=== PATIENT | female | born 1970 | race Caucasian/White ===

== ENCOUNTER 2020-02-11 16:16 | Emergency (ER) | payer SELFPAY ==
--- NOTE | 2020-02-11 16:26 | EDM.PDOC ---
ED HPI GENERAL MEDICAL PROBLEM - General Chief Complaint: General Stated Complaint: SOB AND THROAT FEELS CLOSED Time Seen by Provider: 02/11/20 16:25 - History of Present Illness INITIAL COMMENTS - FREE TEXT/NARRATIVE: 49-year-old female presents the emergency room with throat tightness and a sensation of shortness of breath. The patient was at work today and had this episode come on fairly rapidly. The patient has had multiple double episodes like this and she cannot correlate it with any sort of triggers activity or rest this can occur. Yesterday she had an episode that occurred when she was at home and usually this occurs when she is at work. She is had a few episodes in her sleep where she has had reflux-like symptoms. The patient is quite anxious at this time. She is hypertensive and her pulse is mildly elevated. Patient is diaphoretic. She also describes a chest tightness with this she describes this more as a pressure rather than the pain when it involves her chest. The throat tightness is at its worst she has a radiating pain into her left ear not the right ear. Patient has an aspirin allergy. Throat Pain Score (Numeric/FACES): 8 - Related Data Allergies Allergy/AdvReac Type Severity Reaction Status Date / Time Penicillins Allergy Mild Hives Verified 02/11/20 17:06 aspirin AdvReac Mild Vomiting Verified 02/11/20 17:06 Home Meds: Home Meds hydrOXYzine HCL [hydrOXYzine] 25 mg PO Q6H PRN 02/11/20 [History] ED ROS ENT - Review of Systems Review Of Systems: See Below Constitutional: Reports: No Symptoms HEENT: Reports: No Symptoms Respiratory: Reports: Shortness of Breath Cardiovascular: Reports: Chest Pain, Blood Pressure Problem. Denies: Dyspnea on Exertion, Edema, Syncope Endocrine: Reports: No Symptoms GI/Abdominal: Reports: No Symptoms : Reports: No Symptoms Musculoskeletal: Reports: No Symptoms Skin: Reports: No Symptoms Neurological: Reports: No Symptoms Psychiatric: Reports: Anxiety. Denies: No Symptoms Hematologic/Lymphatic: Reports: No Symptoms. Denies: Anemia Immunologic: Reports: No Symptoms. Denies: Anaphylaxis ED EXAM, ENT - Physical Exam Exam: See Below Exam Limited By: No Limitations General Appearance: Alert, Anxious Eye Exam: Bilateral Eye: Normal Inspection Ears: Normal External Exam, Normal Canal, Hearing Grossly Normal, Normal TMs Nose: Normal Inspection, Normal Mucousa, No Blood Mouth/Throat: Normal Inspection, Normal Gums, Normal Lips, Normal Oropharynx. No: Normal Teeth (He has poor dentition) Head: Atraumatic, Normocephalic Neck: Normal Inspection, Supple, Non-Tender, Full Range of Motion. No: Lymphadenopathy (L), Lymphadenopathy (R), Tender Lateral, Tender Midline Respiratory/Chest: No Respiratory Distress, Lungs Clear, Normal Breath Sounds Cardiovascular: Regular Rate, Rhythm, No Edema, No Murmur, Tachycardia (In the very low 100s) GI/Abdominal: Normal Bowel Sounds, Soft, Non-Tender, Other (Significant abdominal obesity with palpation she has no epigastric discomfort however no upper abdominal discomfort no rigidity rebound or guarding) Back: Normal Inspection. No: CVA Tenderness (L), CVA Tenderness (R) Extremities: Normal Inspection, No Pedal Edema Neurological: Alert, Oriented Psychiatric: Anxious Skin: Warm, Intact, Normal Color, Other (Joseph diaphoretic) EKG INTERPRETATION EKG Date: 02/11/20 Rhythm: NSR [place]: Normal P-Wave: Present QRS: Normal ST-T: Elevated (Elevated in lead III not quite diagnostic at the J-point in aVF or in lead II she has some reciprocal depression in leads I and aVL and to a lesser degree in V2.) Comparison: NA - No Prior EKG EKG Interpretation Comments: EKG suspicious for inferior [place] however no diagnostic changes in 2 contiguous leads. Course - Vital Signs Last Recorded V/S: Last Vital Signs Temp 36.2 C 02/11/20 18:04 Pulse 95 02/11/20 18:04 Resp 22 H 02/11/20 18:04 BP 166/104 H 02/11/20 18:04 Pulse Ox 92 L 02/11/20 18:04 - Orders/Labs/Meds Orders: Active Orders 24 hr Category Date Time Status EKG Documentation Completion [RC] STAT Care 02/11/20 16:35 Active Heparin Sodium/D5W [Heparin 25,000 Units in D5W 500 ML] Med 02/11/20 17:36 Active 25,000 units in 500 ml IV STAT Nitroglycerin/D5W [Nitroglycerin 25 MG/D5W 250 ML] Med 02/11/20 18:15 Active 25 mg in 250 ml IV TITRATE Medication Orders Heparin Sodium/Dextrose (Heparin 25,000 Units In D5w 500 Ml) 25,000 units in 500 mls @ 20 mls/hr IV STAT STA; Protocol Stop: 02/12/20 18:35 Last Admin: 02/11/20 17:49 Dose: 1,000 units/hr, 20 mls/hr Documented by: LISA Cosigned by: KARI Nitroglycerin/Dextrose (Nitroglycerin 25 Mg/D5w 250 Ml) 25 mg in 250 mls @ 3 mls/hr IV TITRATE SAMUEL; Protocol Last Admin: 02/11/20 18:08 Dose: 5 mcg/min, 3 mls/hr Documented by: LISA Labs: Laboratory Tests 02/11/20 02/11/20 Range/Units 16:50 16:50 PT 10.3 (9.7-12.0) SECONDS INR 0.94 APTT 28 (22-31) SECONDS Sodium 139 (136-145) mEq/L Potassium 3.7 (3.5-5.1) mEq/L Chloride 103 (98-107) mEq/L Carbon Dioxide 25 (21-32) mEq/L Anion Gap 14.7 (5-15) BUN 15 (7-18) mg/dL Creatinine 0.9 (0.55-1.02) mg/dL Est Cr Clr Drug Dosing 71.91 mL/min Estimated GFR (MDRD) > 60 (>60) mL/min BUN/Creatinine Ratio 16.7 (14-18) Glucose 116 H (74-106) mg/dL Calcium 9.5 (8.5-10.1) mg/dL Total Bilirubin 0.4 (0.2-1.0) mg/dL AST 14 L (15-37) U/L ALT 23 (14-59) U/L Alkaline Phosphatase 119 H (46-116) U/L Troponin I < 0.017 (0.00-0.056) ng/mL Total Protein 8.6 H (6.4-8.2) g/dl Albumin 3.9 (3.4-5.0) g/dl Globulin 4.7 gm/dL Albumin/Globulin Ratio 0.8 L (1-2) Meds: Medications Generic Name Dose Route Start Last Admin Trade Name Freq PRN Reason Stop Dose Admin Heparin Sodium/Dextrose 25,000 units in 500 mls @ 20 mls/hr 02/11/20 17:36 02/11/20 17:49 Heparin 25,000 Units In D5w 500 Ml IV 02/12/20 18:35 1,000 units/hr STAT STA 20 mls/hr Administration Protocol 1,000 UNITS/HR Nitroglycerin/Dextrose 25 mg in 250 mls @ 3 mls/hr 02/11/20 18:15 02/11/20 18:08 Nitroglycerin 25 Mg/D5w 250 Ml IV 5 mcg/min TITRATE SAUMEL 3 mls/hr Administration Protocol 5 MCG/MIN Discontinued Medications Generic Name Dose Route Start Last Admin Trade Name Chase PRN Reason Stop Dose Admin Aspirin 324 mg 02/11/20 17:45 02/11/20 17:48 Aspirin PO 02/11/20 17:46 324 mg ONETIME ONE Administration Aspirin Confirm 02/11/20 17:46 02/11/20 17:54 Aspirin Administered 02/11/20 17:47 324 mg Dose Administration 324 mg .ROUTE .STK-MED ONE Clopidogrel Bisulfate 600 mg 02/11/20 17:36 02/11/20 17:46 Plavix PO 02/11/20 17:37 600 mg ONETIME ONE Administration Diphenhydramine HCl 25 mg 02/11/20 16:38 02/11/20 17:00 Benadryl IVPUSH 02/11/20 16:39 25 mg ONETIME ONE Administration Famotidine 40 mg 02/11/20 21:00 Pepcid IVPUSH BEDTIME SAMUEL Famotidine 40 mg 02/11/20 16:55 02/11/20 17:01 Pepcid IVPUSH 02/11/20 16:56 40 mg STAT STA Administration Heparin Sodium (Porcine) 4,000 units 02/11/20 17:36 02/11/20 17:45 Heparin Sodium IVPUSH 02/11/20 17:37 4,000 units .BOLUS ONE Administration Nitroglycerin/Dextrose 25 mg in 250 mls @ 02/11/20 18:15 Nitroglycerin 25 Mg/D5w 250 Ml IV TITRATE SAMUEL Protocol 5 ML/KG/MIN Lorazepam 1 mg 02/11/20 16:38 02/11/20 17:01 Ativan IVPUSH 02/11/20 16:39 1 mg ONETIME ONE Administration Nitroglycerin 0.4 mg 02/11/20 17:23 02/11/20 17:52 Nitrostat SL 0.4 mg Q5M PRN Administration Chest Pain Ondansetron HCl 4 mg 02/11/20 17:44 02/11/20 17:56 Zofran IVPUSH 02/11/20 17:45 4 mg ONETIME ONE Administration Tenecteplase Confirm 02/11/20 17:55 02/11/20 17:58 Tnkase Administered 02/11/20 17:56 50 mg Dose Administration 50 mg .ROUTE .STK-MED ONE Tenecteplase 50 mg 02/11/20 18:11 02/11/20 17:58 Tnkase IV 02/11/20 18:12 50 mg STAT STA Administration Protocol - Re-Assessments/Exams Free Text/Narrative Re-Assessment/Exam: 02/11/20 17:57 First EKG obtained at 5:10 PM. It was very concerning for STEMI however did not quite meet criteria she is got significant ST elevation in leads III not diagnosed not quite a millimeter in aVF however or in leads II she is got depression in 1 and aVL and to a lesser degree V2 she also has some elevation in V3. Was not diagnostic for STEMI to give lytics at this point I went ahead and discussed situation with Dr. 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 I did tim check the EKG and really found no infection acute changes compared to EKG #1. We decided to go ahead and give Plavix heparin and her aspirin allergy seems to be GI so we get I gave her some Zofran and follow this with aspirin 324 chewed. Transfer is been set up I discussed the situation with Dr. Pratt again if he agrees at this point because of the delayed transfer time the patient Dr. Pratt wants to go ahead and give the thrombolytics. 02/11/20 18:05 We also started the patient on a nitro drip she had good improvement with 3 sublingual nitro. The patient received thrombolytics she has been given heparin and will remain on a drip she is got a nitro drip started she is received 600 mg of oral Plavix. Departure - Departure Time of Disposition: 17:40 Disposition: DC/Tfer to Acute Hospital 02 Clinical Impression: ACS (acute coronary syndrome) - Discharge Information Referrals: PCP,None [Primary Care Provider] - Forms: ED Department Discharge Sepsis Event Note (ED) - Focused Exam Vital Signs: Vital Signs Temp Pulse Resp BP BP Pulse Ox 02/11/20 18:04 36.2 C 95 22 H 166/104 H 92 L 02/11/20 17:52 166/107 H 02/11/20 17:43 168/113 H 02/11/20 17:36 168/113 H 02/11/20 17:19 95 18 162/102 H 100 02/11/20 16:37 35.5 C L 100 20 208/114 H 99 - My Orders Last 24 Hours: My Active Orders 02/11/20 16:35 EKG Documentation Completion [RC] STAT 02/11/20 17:36 Heparin Sodium/D5W [Heparin 25,000 Units in D5W 500 ML] 25,000 units in 500 ml IV STAT 02/11/20 18:15 Nitroglycerin/D5W [Nitroglycerin 25 MG/D5W 250 ML] 25 mg in 250 ml IV TITRATE - Assessment/Plan Last 24 Hours: My Active Orders 02/11/20 16:35 EKG Documentation Completion [RC] STAT 02/11/20 17:36 Heparin Sodium/D5W [Heparin 25,000 Units in D5W 500 ML] 25,000 units in 500 ml IV STAT 02/11/20 18:15 Nitroglycerin/D5W [Nitroglycerin 25 MG/D5W 250 ML] 25 mg in 250 ml IV TITRATE
[2020-02-11] MEDS ORDERED: LORazepam 2 MG/ML SDV IVPUSH ONE (16:38)
[2020-02-11] MEDS ORDERED: diphenhydrAMINE 50 MG/ML SDV IVPUSH ONE (16:38)
[2020-02-11] MEDS ORDERED: Famotidine 20 MG/2 ML SDV IVPUSH STA (16:55)
[2020-02-11] MEDS: Nitroglycerin 0.4 MG Tab.SL SL PRN ×3 (17:36→17:52)
[2020-02-11] MEDS ORDERED: Heparin Sodium 5,000 Units/ML Vial IVPUSH ONE (17:36)
[2020-02-11] MEDS ORDERED: Heparin Sodium/D5W 25,000 UNITS/500 ML BAG IV STA (17:36)
[2020-02-11] MEDS ORDERED: Clopidogrel 75 MG Tab PO ONE (17:36)
[2020-02-11] MEDS ORDERED: Ondansetron 4 MG/2 ML SDV IVPUSH ONE (17:44)
[2020-02-11] MEDS ORDERED: Aspirin 81 MG Tab.Chew PO ONE (17:45)
[2020-02-11] MEDS ORDERED: Aspirin 81 MG Tab.Chew ONE (17:46)
[2020-02-11] MEDS ORDERED: Tenecteplase 50 MG Kit ONE (17:55)
[2020-02-11] MEDS ORDERED: Tenecteplase 50 MG Kit IV STA (18:11)
--- NOTE | 2020-02-11 18:13 | CR ---
Chest: Portable view of the chest was obtained. Comparison: No prior chest imaging is available. Heart size is generous but accentuated portable technique. Mediastinum is within normal limits for portable technique. Lungs are clear with no acute parenchymal change. Bony structures are grossly intact. Impression: 1. Nothing acute is seen on portable chest x-ray. Diagnostic code #1 This report was dictated in MDT
[2020-02-11] MEDS ORDERED: Nitroglycerin/D5W 25 MG/250 ML BOTTLE IV SCH ×2 (18:15)
[2020-02-11] MEDS ORDERED: Famotidine 20 MG/2 ML SDV IVPUSH SCH (21:00)
== END 2020-02-11 18:18 ==
LOC: JD.ED 16:16
DX: I24.9 Acute ischemic heart disease, unspecified (principal); Z88.0 Allergy status to penicillin; Z88.6 Allergy status to analgesic agent
CPT/HCPCS: 36415; 71045; 80053; 84484; 85610; 85730; 92977; 93005; 94762; 96365; 96375; 99285; A9270; J1200; J1644; J2060; J2405; J3101; J3490